=== PATIENT | male | born 1980 | race Hispanic/Latino ===

== ENCOUNTER 2018-11-20 22:36 | Emergency (ER) | payer OTHER ==
[2018-11-20 22:51] VITALS: BP 132/78; PULSE 84; RESP 18; TEMP 98.5; O2SAT 99
--- NOTE | 2018-11-20 23:38 | ED PDOC ---
Lower Extremity Pain/Injury Time Seen by Provider: 11/20/18 23:10 Chief Complaint (Nursing): Lower Extremity Problem/Injury Chief Complaint (Provider): Left 4th digit History Per: Patient Additional Complaint(s): 38 M with no significant PMH who presents after stubbing toe on wood floor and noticing a "dot on the back". States that it became swollen so he wanted to make sure. He has not taken anything for the pain. He is up to date on tetanus. Past Medical History Reviewed: Historical Data, Nursing Documentation, Vital Signs Vital Signs: Last Vital Signs Temp 98.5 F 11/20/18 22:49 Pulse 84 11/20/18 22:49 Resp 18 11/20/18 22:49 BP 132/78 11/20/18 22:49 Pulse Ox 99 11/20/18 22:49 - Medical History PMH: No Chronic Diseases - Family History Family History: States: Unknown Family Hx - Home Medications Home Medications: Ambulatory Orders Medication Instructions Recorded RX: Ibuprofen [Motrin Tab] 600 mg PO Q6 PRN 7 Days tab 11/21/18 - Allergies Allergies/Adverse Reactions: Allergies Allergy/AdvReac Type Severity Reaction Status Date / Time No Known Allergies Allergy Verified 11/20/18 22:49 Physical Exam - Reviewed Nursing Documentation Reviewed: Yes Vital Signs Reviewed: Yes - Physical Exam Appears: Positive for: Well Extremity: Positive for: Other (4th left digit DIP with edema, minimal tenderness on palpation of DIP, + step off at DIP. Plantar aspect with small abrasion w/ minimal bleeding. ). Negative for: Normal ROM (decreased ROM with passive flexion and extension at DIP) - ECG O2 Sat by Pulse Oximetry: 99 Medical Decision Making Medical Decision Making: Left foot x-ray: possible minimal dislocation of 4th DIP, no fracture noted. Podiatry consult Seen by podiatry, who performed reduction of dislocated 4th left DIP. Repeat x- ray ordered. Surgical shoe applied. Disposition - Clinical Impression Clinical Impression: Toe dislocation - Patient ED Disposition Is Patient to be Admitted: No Discussed With : Ion Olvera Counseled Patient/Family Regarding: Studies Performed, Diagnosis, Need For Followup - Disposition Referrals: Ion Olvera MD [Staff Provider] - Disposition: Routine/Home Disposition Time: 01:24 Condition: STABLE Additional Instructions: Take Tylenol or Ibuprofen for pain. F/u with podiatry in the morning (Dr. Olvera). Call for appointment. Prescriptions: RX: Ibuprofen [Motrin Tab] 600 mg PO Q6 PRN 7 Days tab PRN Reason: Pain, Moderate (4-7) Instructions: Toe Injury (DC) Forms: [facility] ([place]) Print Language: [place]
[2018-11-21] MEDS ORDERED: Povidone Iodine Topical 10% Sol ONE (00:55)
[2018-11-21] MEDS ORDERED: Lidocaine 1% Inj (20ml) ONE (00:58)
--- NOTE | 2018-11-21 07:57 | RAD ---
Date of service: 11/21/2018 PROCEDURE: LEFT 4TH DIGIT RADIOGRAPHS 01/19/2019. HISTORY: dislocation of 4th DIP s/p reduction COMPARISON: With left 4th distal digit radiographs 11/20/2018 11:06 p.m.. TECHNIQUE: Three views of the left 4th digit been submitted for follow-up. FINDINGS: Postreduction images of the left 4th digit been submitted and demonstrate adequate reduction with no interval fracture appreciable throughout the 4th digit. Remaining digits of the left foot appear intact and unremarkable as well as the metatarsal bones throughout. Bandage around 4th digit obscures fine bone and soft tissue details. IMPRESSION: Adequate reduction left 4th digit PIP joint. Bandage obscures fine bone and soft-tissue detail.
--- NOTE | 2018-11-21 08:06 | CP.PCM.CON ---
History of Present Illness - History of Present Illness History of Present Illness: Podiatry consult note - Dr. Olvera 38M with no significant pmhx seen and evaluated in the ED after stubbing his left fourth toe on the hardwood floor. States he felt the toe jam and after waiting for the pain to subside he tried to walk on the foot and felt pain localized to the toe. He also noticed bleeding from the toe. States that he thought he might have broken the toe which prompted him to come to the ED. He jammed his toe at around 10:00PM. Denies N/V/F/C/SOB/CP and has no other acute complaints. He ambulates in boots today. PMHx: denies PSHx: denies All: NKDA Past Patient History - Past Social History Smoking Status: Never Smoked - PSYCHIATRIC Hx Substance Use: No Meds Home Medications: Home Medication List Medication Instructions Recorded Confirmed Type Ibuprofen [Motrin Tab] 600 mg PO Q6 PRN 7 Days tab 11/21/18 Rx Allergies/Adverse Reactions: Allergies Allergy/AdvReac Type Severity Reaction Status Date / Time No Known Allergies Allergy Verified 11/20/18 22:49 Physical Exam - Constitutional Appears: Non-toxic, No Acute Distress - Head Exam Head Exam: ATRAUMATIC, NORMOCEPHALIC - Extremities Exam Additional comments: LLE focused VASC: DP and PT pulses palpable; cap refill <3 seconds to all digits; pedal hair growth present; no edema noted; temp gradient within normal limits DERM: mild abrasion at the plantar aspect of the fourth digit; no other lesions or wounds present; skin temp and turgor are otherwise within normal limits ORTHO: clinical evidence of dislocation or fracture at the PIPJ of the fourth digit, mild pain upon palpation of the digit, unable to actively flex or extend the digit at the PIPJ NEURO: gross and protective sensation intact - Neurological Exam Neurological exam: Alert, Oriented x3 - Psychiatric Exam Psychiatric exam: Normal Affect, Normal Mood Results - Vital Signs Recent Vital Signs: Last Vital Signs Temp 98.5 F 11/20/18 22:49 Pulse 84 11/20/18 22:49 Resp 18 11/20/18 22:49 BP 132/78 11/20/18 22:49 Pulse Ox 99 11/21/18 01:25 Assessment & Plan - Assessment and Plan (Free Text) Assessment: 38M with no significant pmhx seen and evaluated in the ED with left fourth digit PIPJ dislocation Plan: Patient seen and evaluated Discussed plan in detail with Dr. Olvera Left foot fourth digit PIPJ reset and splinted with betadine soaked dressing - patient tolerated procedure Surgical shoe dispensed Patient to follow up 11/[address] Olvera in his office, will call and make appointment Limit weightbearing until visit and rest, ice and elevate the extremity Tylenol for pain management Thank you for the consult - Date & Time Date: 11/21/18 Time: 01:15
--- NOTE | 2018-11-21 08:07 | RAD ---
Date of service: 11/20/2018 PROCEDURE: FOURTH DIGIT RADIOGRAPHS HISTORY: stubbed left 4th toe COMPARISON: None available TECHNIQUE: Three views the 4th digit been submitted for interpretation. FINDINGS: Dislocation of the middle phalanx left 4th digit is identified laterally and possibly dorsally. No fracture appreciable or destructive bony lesion. Remaining bony elements of the forefoot and midfoot appear unremarkable with the exception of bone island at the distal phalanx 2nd digit. IMPRESSION: Likely dorsal dislocation middle phalanx left 4th digit at the PIP joint. No fracture appreciable.
== END 2018-11-21 01:38 | disposition home or self-care (01) ==
LOC: H.ER 22:36
DX: S92.134A Nondisplaced fracture of posterior process of right talus, initial encounter for closed fracture (principal); W22.8XXA Striking against or struck by other objects, initial encounter; Y92.89 Other specified places as the place of occurrence of the external cause